=== PATIENT | female | born 1985 | race Caucasian/White ===

== ENCOUNTER 2024-09-02 14:49 | Emergency (ER) | payer MEDICAID ==
[~2024-09-02] VITALS: Ht 170.2 cm; Wt 55.4 kg
[2024-09-02 14:52] VITALS: BP 118/70; PULSE 95; TEMP 98.6; O2SAT 99
[2024-09-02] MEDS: triamcinolone acetonide 40mg/ml inj IM ONE (16:12)
[2024-09-02 16:21] VITALS: RESP 16
== END 2024-09-02 16:22 | disposition home or self-care (01) ==
LOC: ER 14:49
DX: L23.7 Allergic contact dermatitis due to plants, except food (principal)
CPT/HCPCS: 96372; 99283; J3301

== ENCOUNTER 2024-11-17 13:53 | Emergency (ER) | payer MEDICAID ==
[~2024-11-17] VITALS: Ht 170.2 cm; Wt 72.3 kg
[2024-11-17 14:04] VITALS: TEMP 97.6
[2024-11-17 14:49] LABS: BILIRUBIN,URINE NEGATIVE (Neg); CLARITY,URINE SLIGHTLY CLOUDY (Clear); COLOR,URINE STRAW (Yellow); GLUCOSE, URINE NEGATIVE (Neg); KETONES,URINE NEGATIVE (Neg); LEUKOCYTE ESTERASE ,URINE SMALL (Neg); NITRITES, URINE NEGATIVE (Neg); OCCULT BLOOD,URINE NEGATIVE (Neg); PROTEIN,URINE NEGATIVE (Neg); UROBILINOGEN,URINE 0.2 E.U/dL (0.2-1.0)
[2024-11-17 14:50] LABS: UA COLLECTION TYPE CLN CATCH MIDSTREAM
[2024-11-17 14:52] LABS: URINE HCG NEGATIVE (NEG)
[2024-11-17 14:54] LABS: BACTERIA,URINE FEW /HPF (Neg); MUCUS STRANDS NONE SEEN /LPF (Neg); RBC,URINE 0-2 /HPF (0-2); SQUAMOUS EPITHELIAL CELL,UR FEW /LPF (FEW); WBC CLUMPS,URINE FEW /HPF (NEGATIVE)
[2024-11-17] MEDS ORDERED: PHEN-716 PO (15:25)
[2024-11-17] MEDS ORDERED: CEPH-585 PO (15:25)
[2024-11-17] MEDS: phenazopyridine 100mg tablet PO ONE (16:45)
[2024-11-17] MEDS: CefTRIAXone 1000mg IM Kit (w/lidocaine diluent) IM ONE (16:46)
[2024-11-17 16:56] VITALS: BP 114/75; PULSE 72; RESP 15; O2SAT 100
== END 2024-11-17 16:59 | disposition home or self-care (01) ==
LOC: ER 13:54
DX: N39.0 Urinary tract infection, site not specified (principal)
CPT/HCPCS: 81001; 81025; 87088; 87186; 96372; 99283; J0696; 87077

== ENCOUNTER 2025-03-20 13:08 | Emergency (ER) | payer MEDICAID ==
[~2025-03-20] VITALS: Ht 167.6 cm; Wt 70.8 kg
[~2025-03-20 13:08] MED LIST: PHEN-716 PO
[2025-03-20 13:15] VITALS: BP 141/86
--- NOTE | 2025-03-20 13:32 | Physician Documentation ---
History of Present Illness ~ Chief Complaint: Flu Symptoms Stated Complaint: CONGESTION Time Seen by MD: 15:43 Primary Medical Doctor: NONE HPI This is a 39-year-old female who presents with 7-8 days of sore throat, headache, sinus pressure, nasal congestion, chest congestion, and productive cough. Patient additionally reports loss of taste and smell. Patient reports she is a long-time pack-a-day smoker. Medication Reconciliation Allergies: Coded Allergies: omeprazole (Verified Allergy, Unknown, 03/20/25) Scheduled Ibuprofen (Ibuprofen), 1 TAB PO Q8H Phenazopyridine HCl (Pyridium), 1 TAB PO Q8H Prednisone* (Prednisone*), 1 TAB PO DAILY Scheduled PRN albuterol inhaler (Pro-Air Inhaler), 1-2 PUFFS PO Q4H PRN for shortness of breath Past Medical History Past Medical History: Pancreatitis Review of Systems ROS Headache, sinus pressure, sore throat, chest congestion, productive cough as stated above in the HPI, otherwise all systems are reviewed and negative. Physical Exam Vital Signs: Temperature: 97.8, Source: Temporal, Heart Rate: 87, Respiratory Rate: 18, BP: 141/86, Pulse Oximetry: 97, Weight: 70.750 Physical Exam VITALS: Reviewed and as above. GENERAL: Alert, nontoxic appearing, no apparent distress. HEENT: 2+ tonsils erythematous without patches or exudates, nasal turbinates absent, perforated nasal septum, bilateral TMs clear normal exam, auditory canals nontender and non erythematous bilaterally, anterior cervical lymphadenopathy, no facial swelling, conjunctiva noninjected RESPIRATORY: No increased work of breathing, no respiratory distress, speaking in full clear sentences. Scattered wheezes and rhonchi in all lung [place] CV: Regular rate and rhythm no murmur Progress Progress Note 1758: Wheezes and rhonchi have significantly improved after breathing treatment and patient reports significant improved breathing after breathing treatment, patient reports significantly improved pain after treatment with Toradol and Tylenol. Results/Orders Results/Orders Orders - MARTIN DESOUZA ENGINE REPAIRER Chest,Two Views (03/20/25 16:35) Covid19 Binax Poc Result Entry (03/20/25 16:28) Svn Treatment (03/20/25 17:34) Completed Orders - MARTIN DESOUZA ENGINE REPAIRER Chest,Two Views (03/20/25 16:35) Ketorolac Trometh 15mg/Ml Vial (Toradol (03/20/25 16:30) Acetaminophen 325mg Tablet (Tylenol Tabl (03/20/25 16:30) Ipratropium/Albuterol Nebule (Ipratrop/A (03/20/25 17:35) Prednisone Tablet (Prednisone Tablet) (03/20/25 18:00) Medications Received in ER Medications (Trade) Dose Ordered Sig/Celestino Route PRN Reason Start Time Stop Time Status Last Admin Dose Admin (Toradol injection) 15 mg ONCE ONCE IM 03/20/25 16:30 03/20/25 16:31 DC 03/20/25 16:40 15 MG (Tylenol tablet) 650 mg ONCE ONCE PO 03/20/25 16:30 03/20/25 16:31 DC 03/20/25 16:39 650 MG (ipratrop/ albuterol 0.5-3(2.5) MG/3ml nebule) 3 ml ONCE ONCE NEB 03/20/25 17:35 03/20/25 17:36 DC 03/20/25 17:45 3 ML (predniSONE tablet) 20 mg ONCE ONCE PO 03/20/25 18:00 03/20/25 18:01 DC 03/20/25 18:05 20 MG Vital Signs 03/20/25 03/20/25 03/20/25 03/20/25 13:15 17:47 17:53 18:10 Temp 97.8 97.8 Pulse 87 89 88 Resp 18 20 20 B/P (MAP) 141/86 Pulse Ox 97 98 99 O2 Delivery Room Air* Room Air* O2 Flow Rate 0 0 FiO2 21 21 Laboratory Tests Test 03/20/25 16:50 SARS-CoV-2 Antigen (Rapid) Negative EKG/XRAY/CT/US/VASC/MRI Chest X-Ray : Additional Comments CHEST RADIOGRAPH Indication: Cough Technique: Frontal and lateral view of the chest was obtained Comparison: None FINDINGS: Lines and Tubes: None Lungs: Mild atelectasis left lung base Pleura: No effusion. No pneumothorax. Cardiomediastinal contours: Unremarkable Bones: Unremarkable IMPRESSION: 1. No pneumonia Electronically Signed by:JUAN DANIEL VERGARA MD Date & Time: 03/20/25 1643 Dictated by: JUAN DANIEL VERGARA MD Dictation date and time: 03/20/25 1630 I have reviewed and agree with the radiology report. I have reviewed and interpreted the imaging as: No focal consolidation or pneumothorax Medical Decision Making Findings This 39-year-old female presented with approximately seven days of progressively worsening sinus pressure, sinus congestion, headache, sore throat, chest congestion, and productive cough along with subjective fever and scattered wheezes and rhonchi on physical exam consistent with an upper respiratory tract infection likely viral at her allergy along with acute bronchitis, chest x-ray did not demonstrate evidence of pneumonia it was reassuring patient reported significant relief of symptoms after treatment with DuoNeb along with resolution of wheezing and rhonchi after DuoNeb treatment. Remainder of physical exam was benign and patient reported significant decrease in sinus pain and headache after pain medication department. Vital signs stable without evidence of hypoxia and patient is appropriate for outpatient follow up. Patient discharged on a course of prednisone and provided a prescription for albuterol inhaler for use as needed for shortness of breath or wheezing, patient provided careful return to care precautions which she verbalized understanding of. Differential Dx:Considerations: Include: anxiety, CHF, COPD, panic attack, pneumonia, pneumonitis, pneumothorax, pulmonary embolism, respiratory distress, sinusitis Departure Time of Disposition: 18:03 Disposition: 01 HOME / SELF CARE / HOMELESS Impression: Primary Impression: Upper respiratory infection Qualified Codes: J06.9 - Acute upper respiratory infection, unspecified Additional Impression: Acute bronchitis Qualified Codes: J20.9 - Acute bronchitis, unspecified Condition: Improved Discharge Instructions: Acute Bronchitis, Adult, [id number]-[id number] Additional Instructions: Please take the prednisone as prescribed, please use the prescribed albuterol inhaler as needed for wheezing or shortness of breath. May use the prescribed ibuprofen starting tomorrow for pain and fever, you may also use Tylenol [id number] for pain and fever as directed by the zvdy-odb-voxahld packaging starting today. Please follow up with your primary care provider in the next few days. Please return to the emergency department for any new or wo rsening concerning symptoms including but not limited to difficulty breathing or a fever over 100.4 that does not lower with ibuprofen or Tylenol. Referrals: NO PRIMARY CARE PROVIDER (PCP) Prescriptions Ibuprofen (Ibuprofen) 800 Mg Tablet 1 TAB PO Q8H for pain for 10 Days, #30 TAB 0 Refills Prov: MARTIN DESOUZA 03/20/25 albuterol inhaler (Pro-Air Inhaler) 8.5 Gm Inhaler 1-2 PUFFS PO Q4H PRN for shortness of breath, #1 INH Prov: MARTIN DESOUZA 03/20/25 Prednisone* (Prednisone*) 20 Mg Tablet 1 TAB PO DAILY for 5 Days, #5 TAB Prov: MARTIN DESOUZA 03/20/25 Education Educated: Patient Educated regarding: diagnosis, treatment, prognosis, need for follow up Signature Scribe Signature: No scribe Attestation: The note accurately reflects work and decisions made by me.HARIKA Parsons 03/20/25 21:36 MARTIN DESOUZA Mar 20, 2025 13:32
[2025-03-20] MEDS: acetaminophen 325mg tablet PO ONE (16:39)
[2025-03-20] MEDS: ketorolac trometh 15mg/ml vial 15 MG/ML ML IM ONE (16:40)
--- NOTE | 2025-03-20 16:46 | RADIOLOGY REPORT ---
CHEST RADIOGRAPH Indication: Cough Technique: Frontal and lateral view of the chest was obtained Comparison: None FINDINGS: Lines and Tubes: None Lungs: Mild atelectasis left lung base Pleura: No effusion. No pneumothorax. Cardiomediastinal contours: Unremarkable Bones: Unremarkable IMPRESSION: 1. No pneumonia
[2025-03-20] MEDS: ipratropium/albuterol 3ml nebule NEB ONE (17:45)
[2025-03-20 17:47] VITALS: PULSE 89; RESP 20; O2SAT 98
[2025-03-20 17:53] VITALS: PULSE 88; RESP 20; O2SAT 99
[2025-03-20] MEDS ORDERED: ALBU8HFA PO (18:02)
[2025-03-20] MEDS ORDERED: PRED20TA PO (18:02)
[2025-03-20] MEDS ORDERED: IBUP-1986 PO (18:02)
[2025-03-20] MEDS: predniSONE 20 mg tablet PO ONE (18:05)
[2025-03-20 18:10] VITALS: TEMP 97.8
== END 2025-03-20 18:13 | disposition home or self-care (01) ==
LOC: ER 13:08
DX: J06.9 Acute upper respiratory infection, unspecified (principal); J20.9 Acute bronchitis, unspecified; F17.200 Nicotine dependence, unspecified, uncomplicated; Z88.8 Allergy status to other drugs, medicaments and biological substances; Z20.822 Contact with and (suspected) exposure to COVID-19
CPT/HCPCS: 36415; 71046; 87811; 94640; 96372; 99284; J1885; J7512; 94760; 99283

== ENCOUNTER 2025-06-06 10:31 | Emergency (ER) | payer MEDICAID ==
[~2025-06-06] VITALS: Ht 165.1 cm; Wt 79.0 kg
[~2025-06-06 10:31] MED LIST changes: +IBUP-1986 PO
--- NOTE | 2025-06-06 10:48 | Physician Documentation ---
History of Present Illness ~ Stated Complaint: MULTIPLE MED COMPLAINTS Time Seen by MD: 10:44 Primary Medical Doctor: TREVER MCCONNELL IN [facility] Female presents to the ED with a complaint of shaking hands, dizziness ,"seeing spots" ,"hearing her heartbeat". she denies any chest pain or shortness of the breath. States she does have a history of anxiety and depression she takes hydroxyzine and Prozac. Takes no other medications. Primary care ordered laboratory values to check her blood pressure and cholesterol levels The patient is wearing a nicotine patch as she recently quit smoking and was a pack a day smoker Day of Onset: Jun 06, 2025 Medication Reconciliation Allergies: Coded Allergies: omeprazole (Verified Allergy, Unknown, 03/20/25) Scheduled Ibuprofen (Ibuprofen), 1 TAB PO Q8H Phenazopyridine HCl (Pyridium), 1 TAB PO Q8H Past Medical History Past Medical History: Pancreatitis Progress Results/Orders Results/Orders Completed Orders - BALDOMERO LEW NP Diazepam Inj (Valium Inj) (06/06/25 11:10) Diazepam Inj (Valium Inj) (06/06/25 11:40) Medications Received in ER Medications (Trade) Dose Ordered Sig/Celestino Route PRN Reason Start Time Stop Time Status Last Admin Dose Admin (Valium inj) 10 mg ONCE ONCE IM 06/06/25 11:10 06/06/25 11:11 DC 06/06/25 11:31 10 MG Vital Signs 06/06/25 06/06/25 06/06/25 06/06/25 10:41 11:38 11:41 11:43 Temp 99.1 99.1 Pulse 82 71 Resp 16 13 18 13 B/P (MAP) 134/79 132/72 (92) Pulse Ox 100 98 O2 Flow Rate 0 0 Departure Disposition: 01 HOME / SELF CARE / HOMELESS Impression: Primary Impression: Anxiety Condition: Stable Discharge Instructions: Managing Anxiety, Adult Referrals: NO PRIMARY CARE PROVIDER (PCP) Signature Scribe Signature: d Attestation: Scribed for Baldomero Lew Offset Lithographic Press Operator by Baldomero Pandya NP . 06/06/25 10:48 BALDOMERO LEW NP Jun 06, 2025 10:48
--- NOTE | 2025-06-06 10:59 | ELECTROCARDIOGRAPH REPORT ---
[facility] Test Date: 2025-06-06 Test Time: 10:57:12 Pat Name: PASTOR PARIKH Department: EMERGENCY ROOM Room: Gender: F Card Doffer: CHLOE : 1985 Requested By: PHOENIX GOSS Order Number: [id number] Reading MD: Measurements Intervals [place] Rate: 67 P: -5 WA: 125 QRS: 80 QRSD: 87 T: 37 QT: 393 QTc: 415 Interpretive Statements Sinus rhythm Borderline ST elevation, lateral leads Please click the below link to view image of tracing.
--- NOTE | 2025-06-06 11:13 | RADIOLOGY REPORT ---
CHEST RADIOGRAPH Indication: CP Technique: Single frontal view of the chest was obtained COMPARISON: None FINDINGS: Lines and Tubes: None Lungs: Clear Pleura: No effusion. No pneumothorax. Cardiomediastinal contours: Unremarkable Bones: Unremarkable IMPRESSION: No acute disease.
[2025-06-06] MEDS: diazepam inj 5 MG/ML inj. IM ONE ×2 (11:31→11:41)
[2025-06-06 13:11] VITALS: BP 120/55; PULSE 63; RESP 20; TEMP 99; O2SAT 96
== END 2025-06-06 13:13 | disposition home or self-care (01) ==
LOC: ER 10:32
DX: F41.9 Anxiety disorder, unspecified (principal); F32.A Depression, unspecified; Z88.8 Allergy status to other drugs, medicaments and biological substances; Z79.899 Other long term (current) drug therapy
CPT/HCPCS: 71045; 93005; 96372; 99283; J3360

== ENCOUNTER 2025-10-18 10:16 | Emergency (ER) | payer MEDICAID ==
[~2025-10-18] VITALS: Ht 167.6 cm; Wt 77.3 kg
[2025-10-18 10:24] VITALS: BP 115/70; PULSE 71; TEMP 97.6; O2SAT 100
[2025-10-18] MEDS: ketorolac trometh 15mg/ml vial 15 MG/ML ML IM ONE (11:55)
--- NOTE | 2025-10-18 12:03 | RADIOLOGY REPORT ---
[address] [address] DIAGNOSTIC RADIOLOGY Patient: PASTOR PARIKH Medical Record: [id number] ELIZABETH FLORENCE : 1985, Age: 39 Sex: Female Location: ER Patient Status: [facility] ER Service Date/Time: 10/18/251126 Ordering Physician: RASHAWN LR Exam: ELBOW, COMPLETE (3VW MIN) ELIZABETH FLORENCE EXAMINATION: DI RIBS,UNILAT, DI ELBOW, COMPLETE (3VW MIN) INDICATION: mechanical fall LEFT RIBS COMPARISON: None TECHNIQUE: Frontal view of the chest and 3 views of the left ribs FINDINGS/IMPRESSION: No acute displaced rib fractures. Visualized portions of the lungs are clear. No acute soft tissue abnormalities. No radiographic foreign body. Date Time: 10/18/251200 Dictated by: BIBI ATKINS MD Dictation date and time: 10/18/25 120 Primary Care Provider: NO PRIMARY CARE PROVIDER cc: RASHAWN LR
--- NOTE | 2025-10-18 12:03 | RADIOLOGY REPORT ---
[facility] EXAMINATION: DI RIBS,UNILAT, DI ELBOW, COMPLETE (3VW MIN) INDICATION: mechanical fall LEFT RIBS COMPARISON: None TECHNIQUE: Frontal view of the chest and 3 views of the left ribs FINDINGS/IMPRESSION: No acute displaced rib fractures. Visualized portions of the lungs are clear. No acute soft tissue abnormalities. No radiographic foreign body.
--- NOTE | 2025-10-18 12:04 | RADIOLOGY REPORT ---
INDICATION: mechanical fall TECHNIQUE: Single view of the pelvis COMPARISON: None FINDINGS/IMPRESSION: No acute fracture or dislocations. No acute soft tissue abnormalities. No radiographic foreign body.
--- NOTE | 2025-10-18 12:05 | RADIOLOGY REPORT ---
Procedure: DI FEMUR 2 VIEWS 10/18/2025 11:33 AM TECHNIQUE: DI FEMUR 2 VIEWS Indication: mechanical fall LEFT FEMUR Comparison: None Findings/impression: No acute fracture or dislocation. No acute soft tissue abnormalities. No radiopaque foreign body.
[2025-10-18] MEDS: ketorolac trometh 30MG/ML vial 30 MG/ML VIAL IM ONE (12:09)
--- NOTE | 2025-10-18 13:53 | RADIOLOGY REPORT ---
EXAM: CT CT CERVICAL SPINE INDICATION: Fall, neck pain fall numbness tingling EXAM DATE: 10/18/2025 12:59 PM COMPARISON: None TECHNIQUE: Multiple axial CT images of the cervical spine were obtained using bone algorithm. Axial and coronal reformatting was done. Bone and soft tissue windows were reviewed. Dose-length product is 437 mGy*cm FINDINGS: No acute compression deformity, fracture, or subluxation. Mymm-nw-qbkoqvfe multilevel degenerative changes with xwap-nh-agrzyefp multilevel foraminal stenosis due to facet hypertrophy and uncovertebral hypertrophy. No high-grade spinal canal stenosis. The prevertebral soft tissues are not thickened. Thyroid is unremarkable. Limited sections of the lung apices demonstrate no pneumothorax. IMPRESSION: 1. No acute cervical spine fracture.
--- NOTE | 2025-10-18 15:34 | Physician Documentation ---
History of Present Illness ~ Chief Complaint: Mechanical Fall Stated Complaint: FALL/L SIDE PAIN/ELBOW/LEG Time Seen by MD: 11:28 Primary Medical Doctor: TREVER MCCONNELL IN [facility] Patient is a 39-year-old female that presents to the emergency department for evaluation of musculoskeletal pain after a fall today. Patient reports that she slipped down the steps because they were wet. Patient reports that she did not hit her head but did fall onto her left side. Injuring her left hip left ribs left elbow. Patient denies any cervical thoracic or lumbar spine pain at this time. Patient does report a slight headache. Patient denies any loss of consciousness any visual changes nausea vomiting numbness or tingling in her upper or lower extremities or any other symptoms at this time. Tetanus within 5 Years?: Yes Medication Reconciliation Allergies: Coded Allergies: omeprazole (Verified Allergy, Unknown, 10/18/25) Scheduled Ibuprofen (Ibuprofen), 1 TAB PO Q8H Phenazopyridine HCl (Pyridium), 1 TAB PO Q8H Past Medical History Past Medical History: Pancreatitis Smoking Status: Current every day smoker Review of Systems ROS As stated above in the HPI, otherwise all systems are reviewed and negative. Physical Exam Vital Signs: Temperature: 97.6, Source: Temporal, Heart Rate: 71, Respiratory Rate: 16, BP: 115/70, Pulse Oximetry: 100, Weight: 77.270 Physical Exam VITALS: Reviewed and as above. GENERAL: Alert, no apparent distress. HEENT: Normocephalic, atraumatic, PERRL, EOMI, dry mucosa, no erythema RESPIRATORY: Lungs clear, normal breath sounds, no respiratory distress. CHEST: No accessory muscle use, no retractions CV: Regular rate, rhythm, no edema, no murmur, No: JVD GI: Soft, non-tender, bowels sounds present, no rebound, guarding, or rigidity BACK: No CVA tenderness, or swelling MUSCULOSKELETAL No deformities, no edema, tenderness with examination to left elbow although has good range of motion, tenderness with palpation to the left hip and left femur again good range of motion and ambulation here in the emergency department, no cervical spine tenderness no thoracic spine tenderness or lumbar spine tenderness with palpation. Tenderness to the soft tissue of the left neck radiating down into the left shoulder. SKIN: Warm and dry, no rash NEURO: Oriented x4, No motor or sensory deficit PSYCH: Normal mood and affect, no agitation Progress Results/Orders Results/Orders Orders - RASHAWN LR ELECTROPHYSIOLOGY TECHNOLOGIST Elbow, Complete (3vw Min) (10/18/25 11:27) Ribs,Unilat (10/18/25 11:27) Femur 2 Views (10/18/25 11:27) Pelvis,Limited 1-2 Views (10/18/25 11:27) Ct Cervical Spine (10/18/25 12:40) Hydrocodone/Apap 5/325mg Tab (Soldier 5/32 (10/18/25 15:30) Completed Orders - RASHAWN LR ELECTROPHYSIOLOGY TECHNOLOGIST Acetaminophen 325mg Tablet (Tylenol Tabl (10/18/25 10:30) Elbow, Complete (3vw Min) (10/18/25 11:27) Ribs,Unilat (10/18/25 11:27) Femur 2 Views (10/18/25 11:27) Pelvis,Limited 1-2 Views (10/18/25 11:27) Ketorolac Trometh 15mg/Ml Vial (Toradol (10/18/25 11:45) Acetaminophen 325mg Tablet (Tylenol Tabl (10/18/25 11:50) Ketorolac Trometh 30mg/Ml Vial (Toradol (10/18/25 11:55) Ct Cervical Spine (10/18/25 12:40) Medications Received in ER Medications (Trade) Dose Ordered Sig/Celestino Route PRN Reason Start Time Stop Time Status Last Admin Dose Admin (Tylenol tablet) 975 mg ONCE ONCE PO 10/18/25 10:30 10/18/25 10:31 DC 10/18/25 11:24 975 MG (Toradol inj. 30mg/ml) 30 mg ONCE ONCE IM 10/18/25 11:55 10/18/25 11:59 DC 10/18/25 12:09 30 MG Vital Signs 10/18/25 10/18/25 10:24 12:09 Temp 97.6 Pulse 71 Resp 18 16 B/P (MAP) 115/70 Pulse Ox 100 Medical Decision Making Additional information obtaine: other Findings Chief Complaint: Musculoskeletal pain following mechanical fall History of Present Illness: 39-year-old female presents to the emergency department after slipping down wet steps today and falling onto her left side. Reports injuries to left hip, left ribs, and left elbow. Denies cervical, thoracic, or lumbar spine pain. Reports mild headache. Denies loss of consciousness, visual changes, nausea, vomiting, numbness, tingling in extre mities, or other concerning symptoms. Medical Decision-Making: Number of Diagnoses/Management Options: Moderate complexity Multiple body regions evaluated (left hip, left ribs, left elbow, cervical spine, head) Differential diagnosis included hip fracture, rib fractures, elbow fracture, cervical spine injury, and intracranial injury Amount and Complexity of Data Reviewed: Moderate complexity Imaging obtained and reviewed: X-rays of left elbow: negative for fracture X-rays of left ribs: negative for fracture X-rays of left hip and femur: negative for fracture CT cervical spine without contrast: negative for fracture or injury Imaging Rationale: Radiographs are the initial imaging modality of choice for acute hip pain following trauma Plain radiography is usually sufficient for diagnosis of hip fractures, with at least 90% of proximal femoral fractures identified on radiographs Rib radiographs obtained given mechanism and localized pain; CT chest was not indicated as patient had low-energy mechanism without high clinical suspicion for intrathoracic injury Cervical spine CT obtained based on mechanism of fall and headache; patient did not meet low-risk NEXUS or Home C-Spine Rule criteria given the presence of headache and mechanism involving fall down steps Risk of Complications: Low to moderate Ground-level falls in patients under 65 years carry lower risk than high-energy mechanisms, though still require thorough evaluation No fractures identified on imaging studies No evidence of intracranial injury, spinal cord injury, or neurovascular compromise Patient ambulatory and neurologically intact Assessment and Plan: Primary Diagnoses: Contusion, left hip - No fracture identified on radiographs. Patient able to bear weight. Contusion, left lateral chest wall - No rib fractures identified on radiographs. No pneumothorax or hemothorax. Contusion, left elbow - No fracture identified on radiographs. Normal range of motion. Post-concussive headache - Mild headache without loss of consciousness, normal mental status, no focal neurologic deficits. CT cervical spine negative. Treatment Provided: Pain management with acetaminophen and/or NSAIDs as appropriate for musculoskeletal pain Patient counseled on expected recovery course and pain management strategies Disposition: Discharge to home Patient hemodynamically stable, ambulatory, and neurologically intact No fractures or acute injuries requiring admission or surgical intervention Adequate pain control achieved Patient has reliable follow-up and understands return precautions Discharge Instructions: Pain management: Continue acetaminophen and/or NSAIDs as needed for pain control. Ice application to affected areas for first 48-72 hours. Avoid opioids given low-severity musculoskeletal injuries. Activity: Modified activity as tolerated. Early mobilization and weight-bearing as tolerated to prevent deconditioning. Gradual return to normal activities as pain improves. Follow-up: Scheduled follow-up with primary care provider within 1 week for reassessment and to ensure appropriate recovery trajectory. Return precautions: Instructed to return to emergency department immediately for any of the following: Worsening or severe pain not controlled with pnct-jlq-tynfoau medications New or worsening neurologic symptoms (numbness, tingling, weakness) Difficulty breathing or chest pain Severe headache, vision changes, confusion, or altered mental status Inability to bear weight or ambulate Any other new or concerning symptoms Patient Education: Discussed expected recovery timeline for soft tissue injuries Counseled on fall prevention strategies and home safety assessment Patient verbalized understanding of discharge instructions and return precautions Differential Dx:Considerations: Include: Closed head injury, Cardiac injury, Fracture(s), Intraabdominal injury, Pneumothorax, Cerebral contusion, Pulmonary contusion, Spine injury, Tracheal injury, Urological injury, Vascular injury, Abrasion(s), Contusion(s), Foreign body(s), Hematoma(s), Laceration(s), Encephalopathy, Other Departure Disposition: 01 HOME / SELF CARE / HOMELESS Impression: Primary Impression: Fall Additional Impression: Musculoskeletal pain Condition: Stable Discharge Instructions: Musculoskeletal Pain Additional Instructions: You were seen in the emergency department today after a fall, with injuries to your left hip, left ribs, and left elbow. All of your x-rays were normal, and no broken bones were found. What to expect: You have bruises and soreness from your fall. Most people recover well from these types of injuries within a few weeks. It is normal to have pain, swelling, or stiffness for several days. Pain management: You may use acetaminophen (Tylenol) or ibuprofen (Advil, Motrin) as needed for pain, following the instructions on the package. Applying ice packs to sore areas for 15-20 minutes at a time, several times a day, can help reduce pain and swelling, especially in the first 48 hours. Avoid using opioid pain medications unless specifically directed by your doctor, as they are not recommended for most musculoskeletal injuries. Activity: Try to stay active and move around as much as you can tolerate. Gentle movement helps you heal faster and prevents stiffness. You may return to your normal activities as you feel able. Avoid bed rest, but listen to your body and rest when needed. If an activity causes sharp pain, stop and try again later. Follow-up: Please make an appointment with your primary care provider within the next week to check your progress and discuss any ongoing symptoms. When to seek help: Return to the emergency department or contact your doctor right away if you experience: Severe or worsening pain not controlled with aweu-frv-vjlgxkn medicine New numbness, tingling, or weakness in your arms or legs Trouble breathing or chest pain Inability to walk or bear weight Fever, confusion, or any other new or concerning symptoms Other tips: You may use a heating pad after the first couple of days if it feels good and helps with stiffness. If you have questions or concerns, please contact your doctor. Most people recover quickly from these injuries. Staying active, using simple pain relief, and following up with your doctor will help you heal well. Referrals: NO PRIMARY CARE PROVIDER (PCP) Education Educated: Patient Educated regarding: diagnosis, treatment, need for follow up Signature Scribe Signature: A Attestation: Scribed for Rashawn Lr by HARIKA Wiley . 10/18/25 15:37 RASHAWN LR Oct 18, 2025 15:34
[2025-10-18 15:35] VITALS: RESP 18
[2025-10-18] MEDS: HYDROcodone/acetaminophen 5mg/325mg tablet PO ONE (15:35)
== END 2025-10-18 15:46 | disposition home or self-care (01) ==
LOC: ER 10:17
DX: S70.02XA Contusion of left hip, initial encounter (principal); S50.02XA Contusion of left elbow, initial encounter; M79.18 Myalgia, other site; F17.200 Nicotine dependence, unspecified, uncomplicated; Z79.899 Other long term (current) drug therapy; Z87.19 Personal history of other diseases of the digestive system; W10.9XXA Fall (on) (from) unspecified stairs and steps, initial encounter; Y93.89 Activity, other specified; Y92.89 Other specified places as the place of occurrence of the external cause; Y99.8 Other external cause status
CPT/HCPCS: 71100; 72125; 72170; 73080; 73552; 96372; 99285; J1885